=== PATIENT | male | born 1990 | race Asian ===

== ENCOUNTER 2018-10-17 16:21 | Emergency (ER) | payer OTHER ==
[~2018-10-17] VITALS: Ht 175.3 cm; Wt 66.7 kg
[2018-10-17 17:06] LABS: PLATELET COUNT 175 K/uL (142-355)
[2018-10-17 17:15] LABS: POTASSIUM 4.2 mmol/L (3.6-5.2); SODIUM 135 mmol/L (136-145)
[2018-10-17 20:32] VITALS: BP 109/76; TEMP 98.1
== END 2018-10-17 20:41 | disposition home or self-care (01) ==
LOC: ED 16:21
PROVIDERS: Family Medicine
DX: J40 Bronchitis, not specified as acute or chronic (principal); R05 Cough; M94.0 Chondrocostal junction syndrome [Tietze]
CPT/HCPCS: 36415; 80053; 81000; 82550; 84484; 85027; 85379; 93005; 94664; 96374; 99284; J2930